=== PATIENT | female | born 1985 | race African-American/Black ===

== ENCOUNTER 2019-02-19 09:33 | Day surgery (SDC) | payer OTHER ==
[2019-02-19 10:00] VITALS: BMI 25.8
[2019-02-19] MEDS ORDERED: DEXAMETHASONE SOD PHOSPHATE 4 MG/1 ML VIAL ONE (10:47)
[2019-02-19] MEDS ORDERED: BUPIVACAINE HCL/PF 0.5% (5MG/ML) 10 ML VIAL ONE (10:47)
[2019-02-19] MEDS ORDERED: MIDAZOLAM HCL 2 MG/2 ML SINGLE DOSE VIAL ONE ×3 (11:06)
[2019-02-19] MEDS ORDERED: CLINDAMYCIN 600 MG PREMIX BAG IVPB ONE (11:10)
[2019-02-19] MEDS ORDERED: PROPOFOL 20 ML ONE (11:16)
[2019-02-19] MEDS ORDERED: BUPIVACAINE HCL/PF (5 MG/ML) 30 ML VIAL IJ ONE ×2 (11:18)
[2019-02-19] MEDS ORDERED: LIDOCAINE HCL 1%, 10 MG/ML (20ML VIAL) NR ONE ×2 (11:18)
[2019-02-19] MEDS ORDERED: DEXAMETHASONE SOD PHOSPHATE 4 MG/1 ML VIAL NR ONE (11:56)
--- NOTE | 2019-02-19 12:19 | OP ---
Operative Note - Note: Operative Date: 02/19/19 Pre-Operative Diagnosis: Painful left 2nd and 3rd hammertoes Operation: Arthroplasty left 2nd and 3rd hammertoes, proximal interphalangeal joints Findings: Hypertrophic head of left 2nd and 3rd toes proximal phalanx. Hyperkeratotic skin with bursitis dorsal left 2nd and 3rd proximal interphalangeal joints. Surgeon: Jovanna Alcantara Anesthesiologist/SQL SERVER DBA DEVELOPER: Mercy Hampton MD Anesthesia: MAC Specimens Removed: Skin and bone left 2nd and 3rd toes Estimated Blood Loss (mls): 1 Operative Report Dictated: Yes
[2019-02-19 13:19] VITALS: TEMP 98.3
[2019-02-19 14:09] VITALS: BP 121/67; PULSE 73
--- NOTE | 2019-02-22 09:43 | OP ---
DATE OF OPERATION: 02/19/2019 PREOPERATIVE DIAGNOSIS: Hammertoe, left foot, 2nd toe, 3rd toe. POSTOPERATIVE DIAGNOSIS: Hammertoe, left foot, 2nd toe, 3rd toe. OPERATION: 1. Proximal interphalangeal joint arthroplasty of the left 2nd toe. 2. Proximal interphalangeal joint arthroplasty of the left 3rd toe. ANESTHESIA: Local with IV sedation. SURGEON: Jovanna Alcantara DPM PATHOLOGY: Bone and skin. HEMOSTASIS: Pneumatic ankle tourniquet. ESTIMATED BLOOD LOSS: 1 mL. INJECTABLES: Two mL of a 1-to-1 mixture of 0.5% Marcaine plain plus 1% lidocaine plain. OPERATIVE PROCEDURE: The patient was brought to the operating room and placed on the operating table in the supine position. A pneumatic ankle tourniquet was then placed on the patients left ankle. Following IV sedation, local anesthesia was obtained utilizing 7 mL of a 1-to-1 mixture of 0.5% Marcaine plain and 1% lidocaine plain. The left foot was then scrubbed, prepped, and draped in the usual aseptic manner. An Esmarch bandage was then utilized to exsanguinate the patients left foot, and the tourniquet was inflated. Attention was directed to the 2nd digit, where a 2-converging 3-cm semielliptical longitudinal incision was made over the proximal interphalangeal joint of the digit. The incision was then deepened through the subcutaneous tissues with care to retract all neurovascular structures. The ellipse was removed with sharp dissection and passed from the operative field. All bleeders were cauterized and ligated. A transverse tenotomy and capsulotomy was performed to the proximal interphalangeal joint of the 2nd digit of the left foot. The head of the proximal phalanx was then freed of its soft tissue attachment. The double-action bone cutter was then used to resect the head of the proximal phalanx, which was then passed from the operating room table. The phalanx was then smoothed of its rough edges with the bone rasp. The wound was then flushed with copious amounts of sterile saline, and the extensor tendon was reapproximated with 4-0 Vicryl. The skin was reapproximated with 5-0 nylon. Attention was then directed to the left 3rd digit, where a 2-convergine 2-cm semielliptical longitudinal incision was made over the proximal interphalangeal joint of the digit. The incision was then deepened through the subcutaneous tissues with care to retract all neurovascular structures. The ellipse was removed with sharp dissection and passed from the operative field. All bleeders were cauterized. At this point, 2 mL of a 1-to-1 mixture of 1% lidocaine plain and 0.5% Marcaine plain were injected around the 3rd digit. A transverse tenotomy and capsulotomy was performed to the proximal interphalangeal joint of the 3rd digit of the left foot. The head of the proximal phalanx was then freed of its soft tissue attachment. The double-action bone cutter was then used to resect the head of the proximal phalanx, which was then passed from the operating room table and sent to Pathology. The phalanx was then smoothed of its rough edges with the bone rasp. The wound was then flushed with copious amounts of sterile saline, and the extensor tendon was reapproximated with 4-0 Vicryl. The skin was reapproximated with 5-0 nylon. Upon completion of the procedure, a total of 2 mL of a 5-to-1 mixture of 0.5% Marcaine plain and dexamethasone phosphate was infiltrated around the surgical site. The incision was dressed with Adaptic and covered with sterile compressive dressings such as 4x4s and Georgi. The tourniquet was then deflated, and immediate hyperemia returned to all digits of the left foot. The foot was then AMINA wrapped. The patient tolerated the procedure well and was transferred to the recovery room with all vital signs stable and vascular status intact to the feet. Following postoperative monitoring, the patient was discharged and given instructions which were discussed prior to the surgery. AMOS PEREZ/[id number]
--- NOTE | 2019-02-23 17:48 | PATH ---
Surgical Pathology Report Patient Name: BELIA VILLATORO [facility]. Rec. #: [id number] /Age/Gender: 1985 (Age: 33) / F Account: [id number] Location: [facility] SURGICAL Taken: 02/19/2019 Received: 02/19/2019 Reported: 02/22/2019 Physicians: Jovanna Alcantara DPM Specimen(s) Received A: BONE AND TISSUE OF SECOND DIGIT B: BONE AND TISSUE OF THIRD DIGIT Clinical History Left foot hammertoes Final Diagnosis A. BONE AND TISSUE OF SECOND DIGIT, EXCISION: PORTION OF BONE WITH FATTY MARROW SHOWING FOCAL DEGENERATIVE CHANGE. SEPARATE PORTION OF SKIN WITH ACANTHOSIS AND HYPERKERATOSIS. B. BONE AND TISSUE OF THIRD DIGIT, EXCISION: PORTION OF BONE WITH FATTY MARROW SHOWING DEGENERATIVE CHANGE. SEPARATE PORTION OF SKIN WITH ACANTHOSIS AND HYPERKERATOSIS. Electronically Signed Kayla Salas M.D. Gross Description A. Received in formalin labeled "bone and tissue of the second digit," is a 1.0 x 1.0 x 0.6 cm conn-yellow, unremarkable portion of bone. Also received within the same container is a 2.4 x 0.7 cm brown, elliptical, unoriented skin shave with a central 0.5 cm in greatest dimension ulcerated lesion. Hoop Driving Machine Operator Helper sections are submitted in one cassette, following decalcification. B. Received in formalin labeled "bone and tissue of third digit," is a 1.0 x 0.8 x 0.5 cm conn-yellow portion of bone. Also received within the same container is a 1.8 x 0.5 cm brown, elliptical, unoriented skin shave with a central 0.4 cm greatest dimension ulcerated lesion. Hoop Driving Machine Operator Helper sections are submitted in one cassette, following decalcification. /02/19/2019 saudi02/19/2019
== END 2019-02-19 14:26 | disposition home or self-care (01) ==
LOC: JASU-SURG 09:33
PROVIDERS: ATTEND Podiatrist Foot Surgery
PROC: 0SRQ0JZ Replacement of Left Toe Phalangeal Joint with Synthetic Substitute, Open Approach (ICD-10-PCS; principal; 2019-02-19 11:00)
DX: M20.42 Other hammer toe(s) (acquired), left foot (principal)
CPT/HCPCS: 73630-TC-LT; 84703; 88304-TC; 88311-TC; 94760; 97116-GP